=== PATIENT | female | born 1995 | race Caucasian/White ===

== ENCOUNTER 2016-11-04 21:55 | Emergency (ER) | payer OTHER | END 2016-11-04 22:40 | disposition home or self-care (01) | LOC: CFTX 21:55 | DX: S61.254A Open bite of right ring finger without damage to nail, initial encounter (principal); F32.9 Major depressive disorder, single episode, unspecified; F17.210 Nicotine dependence, cigarettes, uncomplicated; W54.0XXA Bitten by dog, initial encounter | CPT/HCPCS: 12001; 99283 ==

== ENCOUNTER 2017-04-29 22:02 | Emergency (ER) | payer OTHER ==
[~2017-04-29] VITALS: Ht 170.2 cm; Wt 107.5 kg
[2017-04-29 23:34] LABS: URINE SOURCE CLEAN CATCH
[2017-04-29 23:44] LABS: URINE APPEARANCE CLEAR; URINE BILIRUBIN NEG (NEG); URINE BLOOD NEG (NEG); URINE COLOR YELLOW; URINE GLUCOSE NEG (NEG); URINE KETONE NEG (NEG); URINE LEUKOCYTE ESTERASE NEG (NEG); URINE NITRATE NEG (NEG); URINE PH 5.5 (5-8); URINE PROTEIN NEG (NEG); URINE SPECIFIC GRAVITY 1.031 (1.003-1.035); URINE UROBILINOGEN 0.2 MG/DL (NEG)
[2017-04-29 23:54] LABS: CULTURE INDICATED? NO
[2017-05-02 11:48] LABS: CHLAMYDIA TRACH Not Detected (Not Detected); N GONOR Not Detected (Not Detected)
== END 2017-04-30 01:52 | disposition home or self-care (01) ==
LOC: CED 22:02 → CFTX 23:51 → CED 23:51 → CFTX 04-30 01:52
PROVIDERS: Nurse Practitioner Family
DX: N94.6 Dysmenorrhea, unspecified (principal); F17.200 Nicotine dependence, unspecified, uncomplicated; Z90.49 Acquired absence of other specified parts of digestive tract
CPT/HCPCS: 81003; 84703; 87491; 87591; 87808; 87905; 99284